=== PATIENT | male | born 1965 | race Caucasian/White ===

== ENCOUNTER 2017-10-03 08:49 | Emergency (ER) | payer MEDICAID, OTHER ==
[2017-10-03] MEDS: HYDROCODONE/APAP (5/325) TAB PO (10:09)
[2017-10-03] MEDS: ONDANSETRON (ODT) 4 MG TAB ODT (10:09)
== END 2017-10-03 13:58 | disposition home or self-care (01) ==
LOC: FTE 08:49
DX: R51 Headache (principal)
CPT/HCPCS: 70450; 70486; 99285-25